=== PATIENT | male | born 1945 | race Caucasian/White ===

== ENCOUNTER → 2018-12-21 | Outpatient (CLI) | payer MEDICARE ==
--- NOTE | 2018-12-22 15:33 | XR ---
EXAMINATION TYPE: XR knee complete LT DATE OF EXAM: 12/21/2018 CLINICAL HISTORY: Pain after fall injury. TECHNIQUE: Three views of the left knee are obtained. COMPARISON: None. FINDINGS: There is no acute fracture/dislocation evident in left knee. Mild to moderate narrowing me dial tibiofemoral compartment is present. Increased density suprapatellar bursa is suspicious for mod erate-sized joint effusion. IMPRESSION: There is no acute fracture or dislocation in the left knee.
== END ==
LOC: RADXRYALE 16:24
PROVIDERS: ATTEND Family Medicine
DX: M25.562 Pain in left knee (principal)

== ENCOUNTER → 2019-01-30 | Outpatient (CLI) | payer MEDICARE ==
--- NOTE | 2019-01-31 07:36 | BD ---
EXAMINATION TYPE: Axial Bone Density DATE OF EXAM: 01/30/2019 COMPARISON: NONE CLINICAL HISTORY: Long-term steroid use. Osteoporosis screening. FRAX RISK QUESTIONS: Alcohol (3 or more units per day): yes Family History (Parent hip fracture): no Glucocorticoids (More than 3mos): yes (Ex: prednisone, prednisolone, methylprednisolone, dexamethasone, and hydrocortisone). History of Fracture in Adulthood: no Secondary Osteoporosis: 1. Type 1 Diabetes: no 2. Hyperthyroidism: no 3. Menopause before 45: no 4. Malnutrition: no 5. Chronic liver disease: no Rheumatoid Arthritis: no Current Tobacco Use: yes RISK FACTORS HISTORY OF: Surgery to Spine/Hip(right/left)/Wrist (right/left): l spine When: 3 years ago Family History of Osteoporosis: no Active: yes Diet low in dairy products/other sources of calcium: no MEDICATIONS: Prednisone or other steroids: prednisone How Long: off and on for 6 years EXAM MEASUREMENTS: Bone mineral densitometry was performed using the [employer]. Bone mineral density about the R hip (g/cm2): 1.128 Bone mineral density about the L hip (g/cm2): 1.217 T Score values are as follows: -----R Neck: 0.6 -----L Neck: 1.3 -----R Total: 2.5 -----L Total: 2.7 Bone mineral density: baseline Bone mineral density about the L Wrist (g/cm2): 0.811 T Score values are as follows: -----Dist. R+U: 2.6 -----Prox. R+U: 0.7 -----Radius total: 0.9 Bone mineral density : baseline IMPRESSION: Normal (Values between +1 and -1 indicate normal bone mass). Consider repeating this study in 5 year s or sooner if there is some new clinical indication. NOTE: T-SCORE=SD OF THE YOUNG ADULT MEAN.
== END | disposition home or self-care (01) ==
LOC: RADBDWWP 15:22
PROVIDERS: ATTEND Family Medicine
DX: Z13.820 Encounter for screening for osteoporosis (principal); Z79.52 Long term (current) use of systemic steroids
CPT/HCPCS: 77080

== ENCOUNTER → 2019-05-10 | Outpatient (CLI) | payer MEDICARE ==
--- NOTE | 2019-05-10 11:05 | XR ---
EXAMINATION TYPE: XR Hip Complete LT DATE OF EXAM: 05/10/2019 CLINICAL HISTORY: Left hip pain TECHNIQUE: AP and frogleg views of the left hip are obtained. COMPARISON: 01/30/2013 FINDINGS: There is no acute fracture/dislocation evident in the left hip. The joint space in the le ft hip appears aligned with mildly progressed degenerative change in comparison to the prior of 2012. Acetabular roof sclerosis, small subchondral cysts near the chondral labral junction, and slight ce phalad joint space narrowing are seen. There is a very mild cam deformity of the lateral left femoral head neck junction. The overlying soft tissue appears unremarkable. IMPRESSION: 1. Acute fracture or dislocation in the left hip. 2. Mildly progressed overall moderate left femoral acetabular arthropathy. 3. Very small cam deformity of the lateral femoral head neck junction that may predispose this patien t to femoral acetabular impingement syndrome.
--- NOTE | 2019-05-10 11:10 | XR ---
EXAMINATION TYPE: XR lumbosacral spine min 4V DATE OF EXAM: 05/10/2019 CLINICAL HISTORY: Low back pain with radiculopathy after strain injury TECHNIQUE: Frontal, lateral, and oblique images of the lumbar spine are obtained. COMPARISON: 05/02/2016 FINDINGS: There are 5 lumbar type vertebral bodies identified. The lumbar spine shows satisfactory vertebral body heights. There is very mild retrolisthesis of L3 on L4. There is disc space narrowing at L4-L5 and L5-S1. Straightening of the usual lumbar lordosis is again seen. Small anterior osteoph ytes and multilevel facet arthropathy are also again noted. On the oblique images there is neural for aminal narrowing at L2-L3 and L5-S1 on the left and at L2-L3, L3-4 and L4-L5 on the right. IMPRESSION: 1. Very mild retrolisthesis of L3 on L4, likely on a degenerative basis. Straightening of usual lumba r lordosis may relate to muscular sprain and/or spasm. 2. Moderate multilevel degenerative spine resulting in bilateral neural foraminal narrowing at the le vels above that could be further assessed with MRI.
== END | disposition home or self-care (01) ==
LOC: RADXRYALE 10:41
PROVIDERS: ATTEND Family Medicine
DX: M48.061 Spinal stenosis, lumbar region without neurogenic claudication (principal); M43.16 Spondylolisthesis, lumbar region; M40.56 Lordosis, unspecified, lumbar region; M12.9 Arthropathy, unspecified; M21.952 Unspecified acquired deformity of left thigh
CPT/HCPCS: 72110; 73502

== ENCOUNTER → 2019-12-09 | Outpatient (CLI) | payer MEDICARE ==
--- NOTE | 2019-12-09 12:00 | XR ---
EXAMINATION TYPE: XR chest 2V DATE OF EXAM: 12/09/2019 COMPARISON: NONE HISTORY: Shortness of breath TECHNIQUE: Frontal and lateral views of the chest are obtained. FINDINGS: Scattered senescent parenchymal changes noted. Hyperinflation compatible with COPD. No evidence for infiltrate. No evidence for atelectasis. Heart size is stable. Mediastinal structures are stable and grossly unremarkable. No evidence for hilar prominence. Degenerative changes dorsal spine. IMPRESSION: 1. No evidence for acute pulmonary disease.
== END | disposition home or self-care (01) ==
LOC: RADXRYALE 11:30
PROVIDERS: ATTEND Family Medicine
DX: J18.9 Pneumonia, unspecified organism (principal)
CPT/HCPCS: 71046

== ENCOUNTER → 2021-02-15 | Outpatient (CLI) | payer MEDICARE ==
--- NOTE | 2021-02-15 12:14 | XR ---
EXAMINATION TYPE: XR wrist complete LT DATE OF EXAM: 02/15/2021 COMPARISON: NONE HISTORY: 75-year-old male left wrist pain after injury TECHNIQUE: 3 views FINDINGS: There is severe degenerative change at the first CMC joint and moderate at the triscaphe dianne int. Additional severe degenerative change second MCP joint and moderate at the first MCP and IP join ts. No acute fracture, subluxation, or dislocation seen. 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 Moderate at the triscaphe joint as we ll as the first MCP and first IP joints. No acute osseous abnormality seen.
== END | disposition home or self-care (01) ==
LOC: RADXRYALE 11:51
PROVIDERS: ATTEND Family Medicine
DX: M19.042 Primary osteoarthritis, left hand (principal)